=== PATIENT | female | born 1995 | race Caucasian/White ===

== ENCOUNTER 2017-03-05 20:31 | Emergency (ER) | payer BC, MEDICAID, OTHER ==
[~2017-03-05] VITALS: Ht 149.9 cm; Wt 57.2 kg
[2017-03-05] MEDS ORDERED: IBUPROFEN 200 MG TABLET ONE (20:46)
[2017-03-05] MEDS ORDERED: IBUPROFEN 200 MG TABLET PO ONE (21:00)
[2017-03-05 21:17] LABS: RAPID INFLUENZA A POSITIVE (Negative); RAPID INFLUENZA B Negative (Negative)
[2017-03-05 21:46] VITALS: BP 107/71
== END 2017-03-05 21:52 | disposition home or self-care (01) ==
LOC: ED 21:15
DX: J09.X2 Influenza due to identified novel influenza A virus with other respiratory manifestations (principal)
CPT/HCPCS: 87400; 99284